=== PATIENT | male | born 1935 | race Two or more races ===

== ENCOUNTER 2019-03-18 21:04 | Emergency (ER) | payer MEDICARE, MEDICAID ==
[~2019-03-18] VITALS: Ht 165.1 cm; Wt 62.6 kg
[~2019-03-18 21:04] MED LIST: KEFLEX500 MG ORAL
[2019-03-18 21:15] VITALS: BP 202/100
--- NOTE | 2019-03-18 21:20 | NUR ---
ED Nurse Note: Patient was [place] by ambulance from [place], due to fall. Per patient he fell straightforward and hit his head at left side. Deny LOC. AAO x4, HR 116 other VSS at thuis time. Skin is dry, intact warm to touch.
[2019-03-18 21:29] LABS: EOSINOPHILS % (AUTO) 4.3 % (0.0-3.0); HEMATOCRIT 37.8 % (42.0-52.0); HEMOGLOBIN 12.4 G/DL (14.2-18.0); LYMPHOCYTES % (AUTO) 35.3 % (20.0-45.0); MEAN CORPUSCULAR VOLUME 84 FL (80-99); MONOCYTES % (AUTO) 8.2 % (1.0-10.0); NEUTROPHILS % (AUTO) 50.2 % (45.0-75.0); PLATELET COUNT 201 K/UL (150-450); RED BLOOD COUNT 4.52 M/UL (4.70-6.10); RED CELL DISTRIBUTION WIDTH 13.8 % (11.6-14.8); WHITE BLOOD COUNT 6.1 K/UL (4.8-10.8)
[2019-03-18 21:38] LABS: ANION GAP 7 mmol/L (5-15); BLOOD UREA NITROGEN 21 mg/dL (7-18); CALCIUM 9.8 MG/DL (8.5-10.1); CARBON DIOXIDE 31 MMOL/L (21-32); CHLORIDE 103 MMOL/L (98-107); SODIUM 141 MMOL/L (136-145)
--- NOTE | 2019-03-18 21:41 | Diagnostic Imaging Report ---
EXAM: XR Chest, 1 View CLINICAL HISTORY: CP TECHNIQUE: Frontal view of the chest. COMPARISON: No relevant prior studies available. FINDINGS: Lungs: Unremarkable. No consolidation. Pleural space: Unremarkable. No pneumothorax. Heart: Unremarkable. No cardiomegaly. Mediastinum: Unremarkable. Bones/joints: Unremarkable. IMPRESSION: No acute abnormality the lungs
[2019-03-18 21:53] LABS: ALANINE AMINOTRANSFERASE 16 U/L (12-78); ALBUMIN 4.2 G/DL (3.4-5.0); ALBUMIN/GLOBULIN RATIO 1.2 (1.0-2.7); ALKALINE PHOSPHATASE 91 U/L (46-116); ASPARTATE AMINO TRANSFERASE 20 U/L (15-37); BILIRUBIN,TOTAL 0.2 MG/DL (0.2-1.0); CREATINE KINASE 162 U/L (26-308)
--- NOTE | 2019-03-18 22:16 | Diagnostic Imaging Report ---
EXAM: CT Head Without Intravenous Contrast CLINICAL HISTORY: TRAUMA TECHNIQUE: Axial computed tomography images of the head/brain without intravenous contrast. CTDI is 70.4 mGy and DLP is 1407.5 mGy-cm. One or more of the following dose reduction techniques were used: automated exposure control, adjustment of the mA and/or kV according to patient size, use of iterative reconstruction technique. COMPARISON: No relevant prior studies available. FINDINGS: Brain: Unremarkable. No hemorrhage. Mild volume loss as few scattered areas of white matter change Ventricles: Unremarkable. No ventriculomegaly. Bones/joints: Unremarkable. No acute fracture. Soft tissues: Unremarkable. Sinuses: Unremarkable as visualized. No acute sinusitis. Mastoid air cells: Unremarkable as visualized. No mastoid effusion. 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
--- NOTE | 2019-03-18 22:46 | Emergency Room Report ---
History of Present Illness General Chief Complaint: Multiple Trauma/Fall Source: Patient Present Illness HPI Patient presents from a [employer] Reports that he was rushing himself and while walking over he had a fall to the ground Unclear the specifics of the fall he is not sure if he lost his balance or if his legs gave out Denies any obvious lapse of consciousness however denies any chest pain or shortness of breath patient had injury to the left side of his forehead and left upper chest region Denies any neck pain denies any focal weakness denies any vomiting Denies any visual changes Allergies: Coded Allergies: No Known Allergies (Unverified , 07/13/15) Patient History Past Medical History: see triage record Pertinent Family History: none Reviewed Nursing Documentation: PMH: Agreed; PSxH: Agreed Nursing Documentation-PMH Hx Cardiac Problems: Yes Hx Hypertension: Yes Hx Diabetes: Yes Review of Systems All Other Systems: negative except mentioned in HPI Physical Exam Vital Signs Date Time Temp Pulse Resp B/P (MAP) Pulse Ox O2 Delivery O2 Flow Rate FiO2 03/18/19 20:53 98.1 91 16 202/100 (134) 97 Room Air Sp02 EP Interpretation: reviewed, normal General Appearance: well appearing, no apparent distress Head: other - Approximately 1 x 1 cm left forehead lateral eyebrow area Eyes: bilateral eye PERRL, bilateral eye EOMI ENT: hearing grossly normal, normal pharynx, TMs + canals normal, uvula midline Neck: full range of motion, supple, no meningismus, no bony tend Respiratory: lungs clear, normal breath sounds, no rhonchi, no respiratory distress, no retraction, no accessory muscle use Cardiovascular #1: normal peripheral pulses, regular rate, rhythm, no edema, no gallop, no JVD, no murmur Gastrointestinal: normal bowel sounds, non tender, soft, no mass, no organomegaly, non-distended, no guarding, no hernia, no pulsatile mass, no rebound Genitourinary: no CVA tenderness Musculoskeletal: other - Equal veterans' coordinator bilaterally, moves both upper and lower extremities, bearing weight appropriately Neurologic: oriented x3, responsive, motor strength/tone normal, sensory intact Psychiatric: mood/affect normal Skin: normal color, no rash, warm/dry, palpation normal Lymphatic: normal inspection, no adenopathy Medical Decision Making Diagnostic Impression: Primary Impression: Near syncope Additional Impressions: Hypertensive urgency Head injury ER Course Given the patient's history and presentation multiple differentials and consideration Including but not limited to cardiac, cardiopulmonary and neurologic neurosurgical pathology Patient's blood work is at baseline levels CT head does not show any acute pathology Imaging shows underlying cardiomegaly patient initially presented Hypotensive over 200 systolic He has improved with intervention Given his comorbidities age and poor outpatient disposition patient is requested for further inpatient care and secondary to insurance purposes was requested for transfer Patient stable for transfer to [facility], Labs Test 03/18/19 21:09 White Blood Count 6.1 K/UL (4.8-10.8) Red Blood Count 4.52 M/UL (4.70-6.10) Hemoglobin 12.4 G/DL (14.2-18.0) Hematocrit 37.8 % (42.0-52.0) Mean Corpuscular Volume 84 FL (80-99) Mean Corpuscular Hemoglobin 27.5 PG (27.0-31.0) Mean Corpuscular Hemoglobin Concent 32.9 G/DL (32.0-36.0) Red Cell Distribution Width 13.8 % (11.6-14.8) Platelet Count 201 K/UL (150-450) Mean Platelet Volume 7.2 FL (6.5-10.1) Neutrophils (%) (Auto) 50.2 % (45.0-75.0) Lymphocytes (%) (Auto) 35.3 % (20.0-45.0) Monocytes (%) (Auto) 8.2 % (1.0-10.0) Eosinophils (%) (Auto) 4.3 % (0.0-3.0) Basophils (%) (Auto) 2.0 % (0.0-2.0) Sodium Level 141 MMOL/L (136-145) Potassium Level 4.0 MMOL/L (3.5-5.1) Chloride Level 103 MMOL/L (98-107) Carbon Dioxide Level 31 MMOL/L (21-32) Anion Gap 7 mmol/L (5-15) Blood Urea Nitrogen 21 mg/dL (7-18) Creatinine 1.0 MG/DL (0.55-1.30) Estimat Glomerular Filtration Rate mL/min (>60) Glucose Level 160 MG/DL (74-106) Calcium Level 9.8 MG/DL (8.5-10.1) Total Bilirubin 0.2 MG/DL (0.2-1.0) Aspartate Amino Transf (AST/SGOT) 20 U/L (15-37) Alanine Aminotransferase (ALT/SGPT) 16 U/L (12-78) Alkaline Phosphatase 91 U/L (46-116) Total Creatine Kinase 162 U/L (26-308) Creatine Kinase MB 3.0 NG/ML (0.0-3.6) Creatine Kinase MB Relative Index 1.8 Troponin I 0.000 ng/mL (0.000-0.056) Pro-B-Type Natriuretic Peptide 42 pg/mL (0-125) Total Protein 7.7 G/DL (6.4-8.2) Albumin 4.2 G/DL (3.4-5.0) Globulin 3.5 g/dL Albumin/Globulin Ratio 1.2 (1.0-2.7) EKG Diagnostic Results Rate: normal Rhythm: NSR ST Segments: no acute changes Rhythm Strip Diag. 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
[2019-03-18] MEDS ORDERED: Labetalol 5mg/ml 20ml vial IV ONE (23:15)
[2019-03-18 23:50] VITALS: BP 123/76
--- NOTE | 2019-03-18 23:50 | NUR ---
ED Nurse Note: Patient was transfered to [facility] via [employer] [facility], due to hypertensive malignanacy. AAO x4, VSS at this time. Patient was transfered by ACLS protocol, with all belongings.
== END 2019-03-18 23:50 | disposition short-term general hospital (02) ==
LOC: EDBD 21:04 → EMR 21:15
DX: R55 Syncope and collapse (principal); I16.0 Hypertensive urgency; S09.8XXA Other specified injuries of head, initial encounter; W19.XXXA Unspecified fall, initial encounter; Y92.89 Other specified places as the place of occurrence of the external cause; I10 Essential (primary) hypertension; E11.9 Type 2 diabetes mellitus without complications
CPT/HCPCS: 36415; 70450; 71045; 80053; 82550; 82553; 83880; 84484; 85025; 93005; 96374; 96375; 99285; J0360; J2405